=== PATIENT | female | born 1990 | race Caucasian/White ===

== ENCOUNTER 2018-06-06 12:45 | Outpatient (RCR) | payer OTHER | END 2018-06-09 | disposition home or self-care (01) | LOC: WSC | DX: M62.08 Separation of muscle (nontraumatic), other site (principal) ==

== ENCOUNTER 2019-06-25 09:46 | Day surgery (SDC) | payer OTHER ==
[2019-06-25] VITALS (8 sets, daily range): BP systolic 103–113; BP diastolic 65–89; PULSE 47–69; TEMP 98.2
[~2019-06-25] VITALS: Ht 162.6 cm; Wt 74.4 kg
[2019-06-25] MEDS ORDERED: PRILOSEC 20MG20 MG PO (10:10)
[2019-06-25] MEDS ORDERED: ZANTAC 150150 MG PO (10:10)
[2019-06-25] MEDS ORDERED: ZYRTEC ALLERGY10 MG PO (10:11)
[2019-06-25] MEDS ORDERED: ZOFRAN8 MG PO (10:11)
--- NOTE | 2019-06-25 12:05 | NUR ---
Patient returns to GI bay 4 per cart and transfers from cart to recliner. IV fluids infusing. States that she is having some abdominal soreness. Denies need for pain medication and denies nausea. Spouse at side and call light in reach.
--- NOTE | 2019-06-25 12:20 | NUR ---
Resting with eyes closed when not disturbed. Has taken few sips of water and apple juice.
--- NOTE | 2019-06-25 12:35 | NUR ---
Patient is resting and states that she is having slight nausea. Encouraged to rest and limit intake until nausea passes.
--- NOTE | 2019-06-25 12:50 | NUR ---
Resting with eyes closed and offers no complaints of pain or nausea.
--- NOTE | 2019-06-25 13:05 | NUR ---
Dr. Stoll in the room and talking with the patient. All questions answered and patient states that she is feeling slightly nauseated. Order for Phenergan receivied.
--- NOTE | 2019-06-25 13:20 | NUR ---
Upon enetering room patient is sleeping. Phenergan held at this time.
--- NOTE | 2019-06-25 13:35 | NUR ---
Continues to sleep with eyes closed and not disturbed.
--- NOTE | 2019-06-25 13:55 | NUR ---
Spouse has returned patient awake and taking sips of tea and food brought in by spouse.
--- NOTE | 2019-06-25 14:05 | NUR ---
Eating sandwich and offers no further complaints of pain or nausea. Ambulated across the hallway and was able to void and returns to room.
--- NOTE | 2019-06-25 14:19 | NUR ---
Patient dismissed to home accompanied by spouse with dismissal instructions in hand. IV was discontinued and site is free of redness or swelling. Provided office number for questions or concerns.
== END 2019-06-25 14:19 | disposition home or self-care (01) ==
LOC: SDCO 09:46
DX: R10.11 Right upper quadrant pain (principal); R63.0 Anorexia; R11.0 Nausea; F17.210 Nicotine dependence, cigarettes, uncomplicated; G89.29 Other chronic pain; M54.5 Low back pain; K21.0 Gastro-esophageal reflux disease with esophagitis; K44.9 Diaphragmatic hernia without obstruction or gangrene; Z79.899 Other long term (current) drug therapy; Z90.49 Acquired absence of other specified parts of digestive tract; K46.9 Unspecified abdominal hernia without obstruction or gangrene; K59.00 Constipation, unspecified; R53.83 Other fatigue
CPT/HCPCS: C1769; J2250; J2405; J2704; J3010; J7120; Q9967